=== PATIENT | female | born 1990 | race Caucasian/White ===

== ENCOUNTER 2025-01-12 13:58 | Emergency (ER) | payer MEDICAID, OTHER ==
[~2025-01-12] VITALS: Ht 154.9 cm; Wt 83.9 kg
[2025-01-12 16:04] LABS: PLATELET COUNT (AUTO) 316 K/uL (150-450); RED BLOOD CELL COUNT(AUTO) 4.79 MIL/uL (4.0-5.2); RED CELL DISTRIBUTION WIDTH 14.4 % (11.5-15.0); WHITE BLOOD COUNT (AUTO) 9.9 K/uL (4.3-11.0)
[2025-01-12] MEDS ORDERED: ONDANSETRON HCL/PF 4 MG/2 ML VIAL ONE (16:04)
[2025-01-12] MEDS ORDERED: KETOROLAC TROMETHAMINE 15 MG/ML VIAL ONE (16:04)
[2025-01-12 16:21] LABS: CALCIUM, SERUM 8.9 mg/dL (8.5-10.1); CREATININE 0.7 mg/dL (0.6-1.3); SODIUM SERUM 139.0 mmol/L (136-145); UREA NITROGEN, BLOOD 12.0 mg/dL (7-18)
[2025-01-12 16:27] LABS: ASPARTATE AMINOTRANSFERASE 19.0 U/L (15-37); TOTAL PROTEIN, SERUM 8.2 g/dL (6.4-8.2)
[2025-01-12] MEDS ORDERED: OMEP20TA20 PO (17:02)
[2025-01-12] MEDS: ONDANSETRON HCL/PF 4 MG/2 ML VIAL IVP ONE (17:05)
[2025-01-12] MEDS: KETOROLAC TROMETHAMINE 15 MG/ML VIAL IV ONE (17:05)
[2025-01-12] MEDS: IV NS 0.9% 500 ML BAG IV ONE (17:05)
[2025-01-12 17:43] VITALS: BP 128/88; TEMP 98.3; O2SAT 99
== END 2025-01-12 17:43 | disposition home or self-care (01) ==
LOC: ER 14:19
DX: N13.30 Unspecified hydronephrosis (principal); R10.21 Pelvic and perineal pain right side; Z88.0 Allergy status to penicillin; Z79.899 Other long term (current) drug therapy
CPT/HCPCS: 99285; 96374; 76705; 96375; 85025; 80048; 83690; 80076; 84703; 36415; 84702; J1885; J2405; J7040